=== PATIENT | female | born 1965 | race Caucasian/White ===

== ENCOUNTER 2025-02-22 06:06 | Day surgery (SDC) | payer BC, SELFPAY ==
[2025-02-22] MEDS: NORMOSOL-R/PLASMALYTE-A 1000 IV (11:38)
[2025-02-22 11:39] VITALS: BMI 37.8
[2025-02-22 11:40] VITALS: BP 118/72; BMI 37.8
[2025-02-22 13:50] VITALS: BP 114/73
[2025-02-22 14:00] VITALS: BP 109/69
[2025-02-22 14:15] VITALS: BP 113/3
[2025-02-22 14:30] VITALS: BP 113/74
[2025-02-22] MEDS: ROXICODONE 5 MG PO (14:41)
== END 2025-02-22 15:04 | disposition home or self-care (01) ==
LOC: SDS 06:06
PROVIDERS: ATTENDING PHYSICIAN Podiatrist Foot & Ankle Surgery
DX: M20.21 Hallux rigidus, right foot (principal); M25.774 Osteophyte, right foot
CPT/HCPCS: 28122; 73620